=== PATIENT | male | born 1975 | race Caucasian/White ===

== ENCOUNTER 2021-12-30 20:08 | Emergency (ER) | payer BC ==
[2021-12-30] VITALS (13 sets, daily range): BP systolic 87–180; BP diastolic 69–135
[2021-12-30 20:56] LABS: HEMATOCRIT 37.1 % (39.0-50.0); MEAN CORPUSCULAR HGB 29.1 pG CALC (26.0-32.0); MEAN CORPUSCULAR HGB CONC 32.3 g/dL CAL (32.0-36.0); NEUT# 3.52 thou/uL (1.82-7.42); RED BLOOD COUNT 4.12 mill/uL (4.70-6.10); RED CELL DISTRI WIDTH 14.7 % (11.5-15.5)
[2021-12-30 21:14] LABS: ALBUMIN 4.6 g/dL (3.2-5.0); ALKALINE PHOSPHATASE 66 u/l (38-126); ANION GAP 20 (6-22 (CALC)); BILIRUBIN, TOTAL 0.6 mg/dL (0.0-1.4); BUN 21 mg/dL (9-20); BUN/CREATININE RATIO 15 (12-20 (CALC)); CARBON DIOXIDE 22 mmol/l (22-30); CHLORIDE 106 mmol/l (95-108); CREATININE 1.4 mg/dL (0.7-1.3); ETHYL ALCOHOL 172 mg/dl (0-30); GFR FOR AFR.AMER. > 60 ML/MIN (>=60 (CALC)); GFR OTHER RACES 54 ML/MIN (>=60 (CALC)); POTASSIUM 4.2 mmol/l (3.5-5.1); SGOT/AST 65 u/l (17-59); SODIUM 144 mmol/l (137-146); TOTAL PROTEIN 8.3 g/dL (6.3-8.2)
[2021-12-30] MEDS ORDERED: NAPROXEN500 MG PO (22:19)
[2021-12-30] MEDS ORDERED: LORTAB 1010 MG PO (23:13)
[2021-12-30] MEDS ORDERED: AMOXICILLIN500 MG PO (23:13)
[2021-12-31] VITALS: BP 130/92
[2021-12-31 00:30] VITALS: BP 111/77
[2021-12-31 00:45] VITALS: BP 129/85
[2021-12-31 01:00] VITALS: BP 111/84
[2021-12-31 01:30] VITALS: BP 105/71
[2021-12-31] MEDS ORDERED: LORTAB 1010 MG PO (12:47)
[2021-12-31] MEDS ORDERED: AMOXICILLIN500 MG PO (12:47)
== END 2021-12-30 23:31 | disposition home or self-care (01) | DRG 605 ==
LOC: ED 20:08
PROVIDERS: Emergency Medicine
DX: S01.01XA Laceration without foreign body of scalp, initial encounter (principal); S01.312A Laceration without foreign body of left ear, initial encounter; Y04.0XXA Assault by unarmed brawl or fight, initial encounter; S83.92XA Sprain of unspecified site of left knee, initial encounter; F10.10 Alcohol abuse, uncomplicated; Y90.6 Blood alcohol level of 120-199 mg/100 ml